=== PATIENT | male | born 1990 | race Caucasian/White ===

== ENCOUNTER 2017-02-09 09:36 | Emergency (ER) | payer BC, OTHER ==
[~2017-02-09] VITALS: Ht 188 cm; Wt 105.0 kg
[~2017-02-09 09:36] MED LIST: NAPR500 PO; Z.0.NO CURRENT MEDS
[2017-02-09 09:38] VITALS: BP 172/95; PULSE 90; RESP 14; TEMP 98.3; O2SAT 95
--- NOTE | 2017-02-09 10:24 | PD ---
HPI Chief Complaint: Back/ Neck Pain or Injury Time Seen by Provider: 10:09 Travel History International Travel<30 days: No Contact w/Intl Traveler<30days: No Traveled to known affect area: No History of Present Illness HPI This patient complains of back injury. 2 days ago he fell while on a boat and landed on his back. He complains of right low back pain. He says that he went to the chiropractic [facility] and had x-rays done and was told that he broke 3 transverse processes. He was advised to follow up with Dr. Martin by someone at the chiropractic school. He did not call to make an appointment but instead came to the emergency room to see Dr. Martin. Symptoms severity is mild. He is ambulatory. No neurologic complaint PFSH Past Medical History Medical History: Denies Significant Hx Diminished Hearing: No Immunizations Current: Yes Past Surgical History Oral Surgery: Yes Other Surgery: Yes (LEFT KNEE SX) Social History Alcohol Use: No Tobacco Use: No Substance Use: No Allergies-Medications (Allergen,Severity, Reaction): Coded Allergies: Penicillin (Verified Allergy, Intermediate, rash, 02/09/17) Reported Meds & Prescriptions Reported Meds & Active Scripts Active No Active Prescriptions or Reported Medications Review of Systems General / Constitutional: No: Fever HENT: No: Headaches Cardiovascular: No: Chest Pain or Discomfort Physical Exam Narrative GASTROINTESTINAL: Abdomen soft, non-tender, nondistended. Positive bowel sounds. No hepato-splenomegaly, or palpable masses. No guarding. NEUROLOGICAL: Awake and alert. Pupils are equal round and reactive. Motor and sensory grossly within normal limits. Five out of 5 muscle strength in all muscle groups. Normal speech. Back: No midline tenderness. No bruising or swelling Psych: Normal mood and affect. Normal insight and judgment. Data Data Last Documented VS Vital Signs Date Time Temp Pulse Resp B/P Pulse Ox O2 Delivery O2 Flow Rate FiO2 02/09/17 09:38 98.3 90 14 172/95 95 MDM Medical Decision Making Medical Screen Exam Complete: Yes Emergency Medical Condition: Yes Medical Record Reviewed: Yes Differential Diagnosis Transverse process fracture, contusion, lumbar strain Narrative Course I have reviewed the patient's electronic medical record. I discussed options with the patient. I offered to re-x-ray him so I could give him better detailed information but he did not want to get repeat x-rays. He doesn't want to have the weight or radiation or be billed for the x-rays. He is clinically stable and has a 2-day-old fall and is ambulatory. If he did break a transverse process is likely not much to do but let it heal He has decided he would like to go home and will call Dr. Martin's office for follow-up visit Diagnosis Primary Impression: Back pain Qualified Code: M54.5 - Acute right-sided low back pain without sciatica Additional Instructions: The patient was advised to follow up with their physician and return if they worsen. Med/Other Pt SpecificInfo: Other Scripts No Active Prescriptions or Reported Meds Disposition: 01 DISCHARGE HOME Condition: Stable Benjy Taylor MD February 09, 2017 10:23
== END 2017-02-09 11:04 | disposition home or self-care (01) ==
LOC: NEPD 09:36
DX: M54.5 Low back pain (principal); W18.39XA Other fall on same level, initial encounter; Y93.9 Activity, unspecified; Y92.814 Boat as the place of occurrence of the external cause; Y99.8 Other external cause status
CPT/HCPCS: 99283